=== PATIENT | female | born 1985 | race Caucasian/White ===

== ENCOUNTER 2016-06-29 18:12 | Inpatient (IN) | payer OTHER ==
[~2016-06-29] VITALS: Ht 170.1 cm; Wt 57.7 kg
[2016-06-29 18:18] VITALS: BP 90/52
[2016-06-29 18:50] LABS: BASO # 0.1 10*3/uL (0.0-0.1); BASO % 0.7 % (0.0-1.0); EOS # 0.3 10*3/uL (0.0-0.4); EOS % 3.3 % (1.0-4.0); HEMATOCRIT 34.8 % (37.0-47.0); HEMOGLOBIN 11.6 g/dl (12.0-16.0); LYMPH # 2.9 10*3/uL (1.3-4.4); LYMPH % 34.9 % (27.0-41.0); MEAN CELL VOLUME 95.6 fl (81.0-99.0); MEAN CORPUSCULAR HGB 31.9 pg (27.0-31.0); MEAN CORPUSCULAR HGB CONC 33.3 g/dl (33.0-37.0); MEAN PLATELET VOLUME 9.8 fl (9.6-12.3); MONO # 0.4 10*3/uL (0.1-1.0); MONO % 5.1 % (3.0-9.0); NEUT # 4.6 10*3/uL (2.3-7.9); NEUT % 55.9 % (47.0-73.0); PLATELET COUNT AUTOMATED 295 10*3/uL (130-400); RED BLOOD COUNT 3.64 10*6/uL (4.10-5.10); RED CELL DISTRI WIDTH 11.9 % (0-14.5); WHITE BLOOD COUNT 8.2 10*3/uL (4.8-10.8)
[2016-06-29 19:04] LABS: BILIRUBIN NEGATIVE (NEGATIVE); BLOOD NEGATIVE (NEGATIVE); CLARITY SL CLOUDY (CLEAR); COLOR YELLOW (YELLOW); GLUCOSE NEGATIVE (NEGATIVE); KETONE NEGATIVE (NEGATIVE); LEUKO ESTERASE NEGATIVE (NEGATIVE); NITRITE NEGATIVE (NEGATIVE); PROTEIN TRACE (NEGATIVE); SPECIFIC GRAVITY >= 1.030 (1.005-1.030); UROBILINOGEN 0.2 E.U./dl (0.2-1.0)
[2016-06-29 19:06] LABS: ALBUMIN 3.9 gm/dl (3.1-4.5); ALKALINE PHOSPHATASE 104 U/L (45-117); BILIRUBIN, TOTAL 0.4 mg/dl (0.2-1.0); BUN 20 mg/dl (7-24); CARBON DIOXIDE 25 mmol/L (21-32); CHLORIDE 108 mmol/L (98-107); EST GLOM FILT AFRICAN AMERICAN > 60 ml/min; GLUCOSE 86 mg/dL (65-99); POTASSIUM 3.6 mmol/L (3.5-5.1); SGOT/AST 14 IU/L (3-35); SGPT/ALT 36 U/L (12-78); SODIUM 144 mmol/L (136-145); TOTAL PROTEIN 6.9 gm/dL (6.4-8.2)
[2016-06-29 19:18] LABS: RBC 0-2 rbc/hpf (0-2)
[2016-06-29 19:19] LABS: EPITHELIAL CELLS 0-2; MUCOUS 2+; URINE REFLEX COMMENT YES (NO)
[2016-06-29 19:24] LABS: URINE AMPHETAMINES < 1000 (1000ng/ml); URINE BARBITURATES < 200 (200ng/ml); URINE COCAINE < 300 (300ng/ml)
[2016-06-29 19:33] LABS: PROTHROMBIN TIME 11.1 SECONDS (9.0-12.4)
[2016-06-29 20:30] VITALS: BP 96/58
[2016-06-29] MEDS ORDERED: XANAX1 MG PO (20:39)
[2016-06-29] MEDS ORDERED: IBU800 M1 PO (20:51)
[2016-06-30] VITALS: BP 105/56
[2016-06-30 04:00] VITALS: BP 91/56
[2016-06-30 08:00] VITALS: BP 101/56
[2016-06-30 12:00] VITALS: BP 82/51
[2016-06-30 16:00] VITALS: BP 83/44
[2016-06-30 20:00] VITALS: BP 100/64
[2016-07-01] VITALS: BP 92/51
[2016-07-01 08:00] VITALS: BP 106/60
[2016-07-01 16:00] VITALS: BP 96/70
[2016-07-02] VITALS: BP 82/42
[2016-07-02 04:00] VITALS: BP 88/60
[2016-07-02 09:39] LABS: BASO # 0.1 10*3/uL (0.0-0.1); BASO % 0.7 % (0.0-1.0); EOS # 0.5 10*3/uL (0.0-0.4); EOS % 6.2 % (1.0-4.0); LYMPH # 2.6 10*3/uL (1.3-4.4); MEAN CELL VOLUME 96.2 fl (81.0-99.0); MEAN CORPUSCULAR HGB 32.1 pg (27.0-31.0); MEAN CORPUSCULAR HGB CONC 33.3 g/dl (33.0-37.0); MONO # 0.8 10*3/uL (0.1-1.0); MONO % 9.2 % (3.0-9.0); NEUT # 4.2 10*3/uL (2.3-7.9); NEUT % 51.7 % (47.0-73.0); PLATELET COUNT AUTOMATED 239 10*3/uL (130-400); RED BLOOD COUNT 3.43 10*6/uL (4.10-5.10); RED CELL DISTRI WIDTH 11.7 % (0-14.5); WHITE BLOOD COUNT 8.2 10*3/uL (4.8-10.8)
[2016-07-02 10:02] LABS: EST GLOM FILT AFRICAN AMERICAN > 60 ml/min
[2016-07-02 12:00] VITALS: BP 108/65
[2016-07-02] MEDS ORDERED: ZOFRAN 4 MG ED2 TAB PO (17:14)
[2016-07-02] MEDS ORDERED: CARBIDOPA/LEVOD1 TA1 PO (17:14)
[2016-07-02] MEDS ORDERED: ATARAX,VISTARIL50 MG PO (17:14)
== END 2016-07-02 17:37 | disposition home or self-care (01) | DRG 897 ==
LOC: ED 18:12 → EDHOLD 18:55 → 4E 18:55
PROVIDERS: Hospitalist; Internal Medicine; Registered Nurse
DX: F11.23 Opioid dependence with withdrawal (principal); F19.20 Other psychoactive substance dependence, uncomplicated; E87.8 Other disorders of electrolyte and fluid balance, not elsewhere classified; R00.1 Bradycardia, unspecified; D64.9 Anemia, unspecified; F41.0 Panic disorder [episodic paroxysmal anxiety]; F41.1 Generalized anxiety disorder; M79.7 Fibromyalgia; M54.5 Low back pain; G89.29 Other chronic pain; Z79.899 Other long term (current) drug therapy; Z88.0 Allergy status to penicillin; Z88.1 Allergy status to other antibiotic agents; Z83.3 Family history of diabetes mellitus; Z82.49 Family history of ischemic heart disease and other diseases of the circulatory system